=== PATIENT | male | born 1970 | race Caucasian/White ===

== ENCOUNTER → 2023-05-23 | Outpatient (CLI) | payer BC ==
[2023-05-23 14:02] VITALS: BP 143/82; PULSE 91; RESP 14; TEMP 98
== END ==
LOC: PNWHC3 13:26
PROVIDERS: ATTEND Specialist
DX: M43.16 Spondylolisthesis, lumbar region (principal); M46.1 Sacroiliitis, not elsewhere classified; M47.27 Other spondylosis with radiculopathy, lumbosacral region
CPT/HCPCS: 99211

== ENCOUNTER 2023-06-14 08:29 | Day surgery (SDC) | payer BC ==
[2023-06-14 09:11] VITALS: TEMP 97.3
[2023-06-14] MEDS ORDERED: methylPREDNISolone ACETATE 80 MG/ML 1 ML VIAL ONE (09:42)
[2023-06-14] MEDS ORDERED: ROPIVACAINE 5 MG/ML 20 ML AMPULE ONE (09:42)
[2023-06-14] MEDS ORDERED: IOPAMIDOL M200 10 ML VIAL ONE (09:42)
--- NOTE | 2023-06-14 09:51 | P.PCN ---
Date of Procedure: 06/14/23 Procedure(s) Performed: Procedure= left sacroiliac joints steroid injection under fluoroscopy guidance (fluoroscopy image stored on file in the radiology Department ) Preoperative diagnosis= 1- left sacroiliitis . Postoperative diagnosis=Same as preop Diagnosis . Complication = none Condition= stable Anesthesia= local anesthesia with ropivacaine 0.5% 2 ml only Indication for the procedure= patient complaining of low back pain , examination was positive for severe tenderness over the left sacroiliac joints ,and patient diagnosed with left sacroiliitis, for this reason he was good candidate for left sacroiliac joint steroid injection. Description of the procedure= procedure risk and benefits discussed with the patient, including but not limited, risk of infection and bleeding, and ALLERGIC reaction to the medication and not complete pain relief and patient agreed with the preceding patient taken to the operating room, placed in prone position or standard monitors applied to the patient then after induction of anesthesia back prepped with chlorhexidine 3 times , Then the left sacroiliac joint steroid injection done under strict sterile technique local infiltration of the skin and subcu interstitial at the location of the left sacroiliac joint then a 22-gauge Quincke Needle advanced slowly under fluoroscopy time placed in the left sacroiliac joint, needle placement confirmed with AP and oblique and lateral view then after appropriate needle placement confirmed, with the AP and oblique and lateral then after negative aspiration Isovue 200 1 mL injected showed arthropathy of the left sacroiliac joint, and after negative aspiration 0.5% Ropivacaine 2 mL and 80 mg of Depo-Medrol injected in the left sacroiliac joint after negative aspiration patient tolerated the procedure well that any complications and she will follow up in clinic 3 weeks
[2023-06-14 09:52] VITALS: BP 148/82; PULSE 78; RESP 18
--- NOTE | 2023-06-14 10:07 | FL ---
Intraoperative/procedural fluoroscopic services were provided for left SI joint injection. Total fluo roscopy time is 5.0 seconds with a total of 1 submitted image to PACS. Total DAP [id number] [employer]Gym2. Plea se see the operative note for further details.
== END 2023-06-14 10:07 | disposition home or self-care (01) ==
LOC: ORPAIN 08:29
PROVIDERS: ATTEND Specialist
DX: M46.1 Sacroiliitis, not elsewhere classified (principal)
CPT/HCPCS: 27096; J1040; Q9966; J2795

== ENCOUNTER → 2023-07-11 | Outpatient (CLI) | payer BC ==
[2023-07-11 14:05] VITALS: BP 156/100; PULSE 80; RESP 16
--- NOTE | 2023-07-11 15:35 | P.PAINPG ---
PQRS Measure Charge Sheet Comment: HISTORY OF PRESENT ILLNESS: 53 yr old male presents today w severe and chronic LBP x 3 mo secondary to DDD, spondylosis and facet arthropathy without myelopathy for evaluation s/p L SI injection. Pt states he experienced 100% pain relief x several weeks s/p procedure. Pt states pain level is provoked at 0/10 in intensity. Pain has no provocation. Pain is alleviated by injections, medications, PT which he is currently in, massage therapy which he is currently in, chiropractic treatments currently in, physician guided home exercises from Dr Yung's office which he performs 4-5 times weekly x 4 wks, heat & ice, use of a TENS unit, repositioning and rest. Interventional procedures include L SI x1 Medications include Tyl Arthritis, Flexeril REVIEW OF ORGAN SYSTEMS: CONSTITUTIONAL: No fevers or chills. No recent weight loss. NEUROLOGICAL: + numbness and tingling along the distal extremities. No seizure disorders or headaches. MUSCULOSKELETAL: + pain PSYCHIATRIC: Denies current depression or suicidal t houghts. Physical Examinations : Constitutional : Cooperative , not in acute distress . Neurologic : Cranial nerve II to XII intact. No focal neurological deficits. Psychiatric : alert & oriented x 3. Matching mood & appropriate affect. Judgment & insight intact. Musculoskeletal : Cervical Spine Motor strength in the deltoid and biceps: Normal right side. Normal Left side Motor strength biceps and the wrist extensors: Normal right side . Normal left side Motor strength in the triceps muscle: Normal right side. Normal left side Deep tendon reflexes: Normal at the bi ceps. Normal at Brachioradialis. Normal at triceps Vertebral body tenderness to deep palpation Cervical facet loading test: positive bilaterally Spurling test: positive bilaterally Neck distraction test: positive bilaterally Amalia sign: positive bilaterally Lumbar spine Motor strength lower extremities ,thigh and legs 5/5 Right side , 5/5 Left side Deep tendon reflexes : Normal Knee Jerk. Normal Ankle Jerk Vertebral body tenderness over Miller Test positive Lumbar facet Loading Test: positive Right / positive Left Range of motion of the lumbar spine Flexion 30 degrees, extension 10 degrees Straight Leg Raise test: Left/ Right positive at degree Andre test: positive right / positive left. Severe tenderness over the Sacroiliac joint on the Right / Left sides Gaenslen test: positive bilaterally Seated flexion test: positive bilaterally. Sacral spine : Severe tenderness over the Sacroiliac joint: right side / left side Range of motion: Flexion of the lumbar spine <60 degrees Range of motion: Extension of the lumbar spine <20 degrees Gaenslen's Test positive on L Andre test: positive right side / left side Thigh Thrust Test L positive Sacral Thrust Test Imaging: MRI non contrast of the cervical spine from reviewed Assessment/ Plan : L Sacroiliitis Pt tolerated procedure wll and will manage residual pain on his own. May return to clinic on an as needed basis. All questions answered. I have spent greater than 30 minutes on patient care today. Dr Iverson was available by phone for the evaluation of this patient. The time was used to review the medical records including relevant urine studies and Prescription history (MAPs), review of the available imaging, evaluation and examination of the patient, coordination of care with the medical staff and if applicable referring physicians, as well as creation of the medical record PQRS Narrative: Hx Alcohol Use (MH) Yes: SOCIAL Home Medications: Ambulatory Orders Vit B With C 1 tab PO DAILY 06/07/23 Controlled Substance Measures - Controlled Substance Measures Is patient prescribed a controlled substance at discharge?: No
== END ==
LOC: PNWHC3 13:18
PROVIDERS: ATTEND Specialist
DX: M46.1 Sacroiliitis, not elsewhere classified (principal)
CPT/HCPCS: 99211